=== PATIENT | female | born 1930 | race Caucasian/White ===

== ENCOUNTER 2017-02-19 21:59 | Inpatient (IN) ==
[2017-02-19] MEDS ORDERED: methylPREDNISolone 125 MG/2 ML VIAL IVP ONE (22:21)
[2017-02-19] MEDS ORDERED: Albuterol 2.5 MG/3 ML NEBULIZER IH ONE (22:21)
[2017-02-19] MEDS ORDERED: Ipratropium/Albuterol Neb 3 ML IH ONE (22:21)
--- NOTE | 2017-02-19 22:24 | Emergency Department Note ---
Disposition Clinical Impression: COPD exacerbation Pneumonia Qualifiers: Pneumonia type: due to unspecified organism Laterality: left Lung location: lower lobe of lung Qualified Code(s): J18.1 - Lobar pneumonia, unspecified organism Disposition: Admitted As Inpatient Condition: Good Referrals: NONE,PCP [Non-Partnered Physician] - Forms: ED Satisfaction Letter Time of Disposition: 01:32 SOB HPI - General Chief Complaint: ED Shortness of Breath/Dyspnea Stated Complaint: has CHF, cant breathe Time Seen by Provider: 02/19/17 22:20 Source: patient, family Mode of arrival: wheelchair Limitations: no limitations Nursing Notes Reviewed: Yes Vital Signs Reviewed: Yes - History of Present Illness 86-year-old white female with onset of difficulty breathing this evening just prior to coming in. She has developed a cough over the last day or 2. It is productive white sputum. No fever reported. No chest pain. She has a history of COPD and CHF. Troponin and cytopenia. She was exposed to a family member who has bronchitis. She is not on home oxygen. No leg swelling. Pt Subjective Complaint: shortness of breath, cough Onset (ago): day(s) Context: recent illness (1) Severity: moderate Consistency/Duration: constant Improves with: oxygen, rest Worsens with: lying flat, exertion Known history of: COPD, congestive heart failure Associated symptoms: Reports: sputum production Treatment prior to arrival: bronchodilator Cough present: Yes Cough Description: Involuntary Cough Frequency: Intermittent Sputum production: Yes Sputum Amount: Moderate Sputum Color: White - Related Data Home oxygen amount: none Home Medications Medication Instructions Recorded Confirmed Carvedilol [Coreg] 3.125 mg PO BIDWM 04/13/15 12/18/16 Furosemide [Lasix] 40 mg PO BID 04/13/15 12/18/16 Lisinopril [Zestril] 2.5 mg PO DAILY 04/13/15 12/18/16 Multivitamin/Iron/Folic Acid 1 each PO DAILY 04/13/15 12/18/16 [Centrum Complete Multivit Tab] Tiotropium [Spiriva] 18 mcg IH DAILY 04/13/15 12/18/16 Azelastine 0.1% Nasal [place] 1 spr IH BID 10/15/15 12/18/16 [Astelin] Clopidogrel [Plavix] 75 mg PO DAILY 10/15/15 12/18/16 Montelukast [Singulair] 10 mg PO QPM 10/15/15 12/18/16 Budesonide/Formoterol 80/4.5 2 puff IH BID 02/12/16 12/18/16 [Symbicort 80/4.5] Cyanocobalamin (Vitamin B-12) 2,500 mcg PO DAILY 02/12/16 12/18/16 [Vitamin B12] Spironolactone [Aldactone] 12.5 mg PO DAILY 02/12/16 12/18/16 Albuterol Sulfate [Ventolin Hfa] 2 puff IH Q4H PRN 08/27/16 12/18/16 Mirtazapine [Remeron] 15 mg PO HS 08/27/16 12/18/16 [place]-3/Dha/Epa/Fish Oil [Fish Oil 1 each PO DAILY 08/27/16 12/18/16 1,000 mg Softgel] Biotin 1 mg PO DAILY 09/06/16 12/18/16 Loratadine [Allergy Relief] 10 mg PO DAILY 09/06/16 12/18/16 Acetaminophen [Tylenol] 500 mg PO Q6HR PRN 09/14/16 12/18/16 Aspirin 81 mg PO DAILY 09/14/16 12/18/16 GuaiFENesin ER [Mucinex] 600 mg PO BID PRN 12/18/16 12/18/16 Levothyroxine [Synthroid] 125 mcg PO 0630 12/18/16 12/18/16 Pantoprazole Sodium [Protonix] 40 mg PO DAILY 12/18/16 12/18/16 Simethicone [Gas-X] 80 mg PO QID 12/18/16 12/18/16 Simvastatin [Zocor] 20 mg PO HS 12/18/16 12/18/16 Previous Rx's Medication Instructions Recorded Lactulose 10 gm PO TID udc 02/14/16 Albuterol Neb [Proventil Neb] 2.5 mg IH Q2H PRN #0 inhsol 09/21/16 Docusate [Colace] 100 mg PO BID PRN #0 capsule 10/25/16 Polyethylene Glycol 3350 [MiraLAX 1 scoop PO DAILY #510 gm 10/25/16 Powder Bulk 17.9 Oz] Simethicone [Gas-X] 80 mg PO TID #90 tab.chew 12/19/16 Nitrofurantoin (BID) [Macrobid] 100 mg PO BID #14 capsule 01/16/17 Allergies Allergy/AdvReac Type Severity Reaction Status Date / Time Penicillins Allergy Mild UNKNOWN Verified 01/18/17 14:36 cephalexin Allergy Anaphylaxis Verified 01/18/17 14:36 Sulfa (Sulfonamide Allergy Hives Verified 01/18/17 14:36 Antibiotics) All systems ED: reviewed and negative except as stated. Constitutional: Denies: fever, chills ENT ED: Denies: ear pain, throat pain Cardiovascular: Denies: chest pain Respiratory: Reports: cough, dyspnea, wheezes Gastrointestinal: Denies: abdominal pain, nausea, vomiting Neurological: Reports: weakness Past Medical History - Past Medical History Medical history: Reports: arthritis, atrial fibrillation, cardiomyopathy, cirrhosis, CHF, COPD, coronary artery disease, dementia, diabetes, GERD, hyperlipidemia, hypertension, liver disease, myocardial infarction, peripheral artery disease, renal disease, thyroid disease, other Surgical history: Reports: angioplasty/stent, cholecystectomy, coronary bypass ( CABG), herniorrhaphy (x2), pacemaker/AICD, other, vascular surgery (Lower extremity vein stripping of both extremities.), AICD, pacemaker Psychiatric history: Reports: anxiety, depression, other TEMPLATE FITTER history: Reports: no TEMPLATE FITTER history - Social History Smoking Status: Never smoker Smokeless Tobacco Status: No Alcohol use: Reports: none Drug use: Reports: none Physical Exam - General Limitations: no limitations General appearance: alert, in distress (Mildly dyspneic) - Head Head exam: atraumatic, normocephalic - Eye Eye exam: Present: PERRL, EOMI, other ([place] conjunctiva). Absent: scleral icterus - ENT ENT exam: normal oropharynx, mucous membranes moist - Neck Neck exam: Present: normal inspection, full ROM, trachea midline. Absent: lymphadenopathy - Respiratory Respiratory exam: Present: respiratory distress (Mildly dyspneic), wheezes ( Bilateral, moderate, expiratory), prolonged expiratory phase, other (Decreased breath sounds left base with rales in the left base) - Cardiovascular Cardiovascular exam: Present: regular rate, normal rhythm, normal heart sounds - Abdominal Exam Abdominal exam: Present: soft, Non-Tender. Absent: organomegaly, mass - Extremities Exam Extremities exam: Present: normal capillary refill. Absent: tenderness, pedal edema, calf tenderness - Neurological Exam Neurological exam: Present: alert, oriented X3. Absent: motor sensory deficit - Psychiatric Psychiatric exam: Present: normal affect, normal mood - Skin Skin exam: Present: warm, dry, intact. Absent: cyanosis, diaphoresis Course - Reevaluation(s) Reevaluation #1: Discussed with Dr. Echevarria. He accepts the patient for admission. The patient is resting comfortably at this time. Her heart rate is 104. She is breathing easily. She is actually eating and drinking in the room at this time. She is improved. Time: 01:31 Vital Signs Temperature 100.8 F H 02/19/17 22:00 Pulse Rate 82 02/19/17 22:00 Respiratory Rate 36 02/19/17 22:00 Blood Pressure 112/59 02/19/17 22:00 O2 Sat by Pulse Oximetry 90 02/19/17 22:00 Temperature 100.8 F H 02/19/17 22:00 Pulse Rate 65 02/20/17 01:21 Respiratory Rate 24 02/20/17 01:21 Blood Pressure 121/45 02/20/17 01:21 O2 Sat by Pulse Oximetry 100 02/20/17 01:21 Oxygen Delivery Oxygen Delivery Nasal Cannula Shortness of Breath/Dyspnea - [facility] Narrative Medical decision making narrative: Radiographically I suspect she has pneumonia, she does have a low-grade temperature. She likely has an exacerbation of her COPD as well. There is no overt failure on her chest x-ray, although her BNP is elevated. Blood cultures were obtained. She was given nebulizers and Solu-Medrol. She was given a dose of Lasix. She will be admitted to a telemetry bed. I discussed her CODE STATUS with her family. I do not want CPR. - Differential Diagnosis Likely: acute exacerbation of chronic obstructive airways disease, congestive heart failure, pneumonia, pulmonary embolism, arrhythmia - Lab Data Lab results reviewed: Yes I reviewed the patient's lab results. Result diagrams: 02/19/17 22:32 02/19/17 22:32 Lab Results 02/19/17 02/19/17 02/19/17 Range/Units 00:35 22:32 22:32 WBC 6.7 (4.3-11.1) K/mcL RBC 2.67 L (3.82-4.97) M/mcL Hgb 9.0 L (11.5-15.4) g/dL Hct 26.7 L (35.3-44.9) % MCV 100.0 (83.0-100.0) fL MCH 33.7 H (28.0-33.3) pg MCHC 33.7 (31.6-35.5) g/dL RDW 12.5 (11.5-14.5) % Plt Count 78 L (140-400) K/mcL MPV 12.7 H (9.4-12.4) fL Immature Gran % 0.3 (0-4) % Seg Neutrophils % 81.3 % Lymphocytes % 10.2 % Monocytes % 7.3 % Eosinophils % 0.6 % Basophils % 0.3 % Neutrophils # 5.4 (1.6-8.9) K/mcL Lymphocytes # 0.7 (0.6-4.6) K/mcL Monocytes # 0.5 (0.0-1.3) K/mcL Eosinophils # 0.0 (0.0-0.6) K/mcL Basophils # 0.0 (0.0-0.2) K/mcL PT 13.8 H (9.4-12.1) Seconds INR 1.3 VBG Lactic Acid (0.5-2.2) mmol/L Sodium (136-145) mEq/L Potassium (3.5-4.5) mEq/L Chloride (98-109) mEq/L Carbon Dioxide (19-29) mEq/L BUN (7-20) mg/dL Creatinine (0.57-1.11) mg/dL Est GFR ( Amer) (> 60) Est GFR (Non-Af Amer) (> 60) BUN/Creatinine Ratio (6-26) Glucose (70-99) mg/dL Calculated Osmolality (280-300) Calcium (8.6-10.8) mg/dL Total Bilirubin (0.2-1.2) mg/dL AST (5-34) Units/L ALT (0-55) Units/L Alkaline Phosphatase (38-126) Units/L Troponin I 0.02 (0-0.03) ng/mL B-Natriuretic Peptide (0-100) pg/mL Serum Total Protein (6.0-8.3) g/dL Albumin (3.5-5.0) g/dL Globulin (2.4-3.5) g/dL Albumin/Globulin Ratio (1.1-2.2) 02/19/17 02/19/17 02/19/17 Range/Units 22:32 22:32 22:32 WBC (4.3-11.1) K/mcL RBC (3.82-4.97) M/mcL Hgb (11.5-15.4) g/dL Hct (35.3-44.9) % MCV (83.0-100.0) fL MCH (28.0-33.3) pg MCHC (31.6-35.5) g/dL RDW (11.5-14.5) % Plt Count (140-400) K/mcL MPV (9.4-12.4) fL Immature Gran % (0-4) % Seg Neutrophils % % Lymphocytes % % Monocytes % % Eosinophils % % Basophils % % Neutrophils # (1.6-8.9) K/mcL Lymphocytes # (0.6-4.6) K/mcL Monocytes # (0.0-1.3) K/mcL Eosinophils # (0.0-0.6) K/mcL Basophils # (0.0-0.2) K/mcL PT (9.4-12.1) Seconds INR VBG Lactic Acid (0.5-2.2) mmol/L Sodium 135 L (136-145) mEq/L Potassium 5.2 H (3.5-4.5) mEq/L Chloride 101 (98-109) mEq/L Carbon Dioxide 22 (19-29) mEq/L BUN 30 H (7-20) mg/dL Creatinine 1.43 H (0.57-1.11) mg/dL Est GFR ( Amer) 42 L (> 60) Est GFR (Non-Af Amer) 35 L (> 60) BUN/Creatinine Ratio 21 (6-26) Glucose 374 H (70-99) mg/dL Calculated Osmolality 301 H (280-300) Calcium 9.5 (8.6-10.8) mg/dL Total Bilirubin 0.7 (0.2-1.2) mg/dL AST 41 H (5-34) Units/L ALT 32 (0-55) Units/L Alkaline Phosphatase 90 (38-126) Units/L Troponin I 0.02 (0-0.03) ng/mL B-Natriuretic Peptide 1630 H (0-100) pg/mL Serum Total Protein 6.9 (6.0-8.3) g/dL Albumin 3.4 L (3.5-5.0) g/dL Globulin 3.5 (2.4-3.5) g/dL Albumin/Globulin Ratio 1.0 L (1.1-2.2) 02/19/17 Range/Units 22:32 WBC (4.3-11.1) K/mcL RBC (3.82-4.97) M/mcL Hgb (11.5-15.4) g/dL Hct (35.3-44.9) % MCV (83.0-100.0) fL MCH (28.0-33.3) pg MCHC (31.6-35.5) g/dL RDW (11.5-14.5) % Plt Count (140-400) K/mcL MPV (9.4-12.4) fL Immature Gran % (0-4) % Seg Neutrophils % % Lymphocytes % % Monocytes % % Eosinophils % % Basophils % % Neutrophils # (1.6-8.9) K/mcL Lymphocytes # (0.6-4.6) K/mcL Monocytes # (0.0-1.3) K/mcL Eosinophils # (0.0-0.6) K/mcL Basophils # (0.0-0.2) K/mcL PT (9.4-12.1) Seconds INR VBG Lactic Acid 2.1 (0.5-2.2) mmol/L Sodium (136-145) mEq/L Potassium (3.5-4.5) mEq/L Chloride (98-109) mEq/L Carbon Dioxide (19-29) mEq/L BUN (7-20) mg/dL Creatinine (0.57-1.11) mg/dL Est GFR ( Amer) (> 60) Est GFR (Non-Af Amer) (> 60) BUN/Creatinine Ratio (6-26) Glucose (70-99) mg/dL Calculated Osmolality (280-300) Calcium (8.6-10.8) mg/dL Total Bilirubin (0.2-1.2) mg/dL AST (5-34) Units/L ALT (0-55) Units/L Alkaline Phosphatase (38-126) Units/L Troponin I (0-0.03) ng/mL B-Natriuretic Peptide (0-100) pg/mL Serum Total Protein (6.0-8.3) g/dL Albumin (3.5-5.0) g/dL Globulin (2.4-3.5) g/dL Albumin/Globulin Ratio (1.1-2.2) - Radiology Data Radiology results reviewed: Yes I reviewed the patient's radiology results. Impressions Chest X-Ray 02/19/17 22:21 IMPRESSION: Progressive left basilar pleuroparenchymal disease. D/ / Smith Walker MD / Smith Walker MD Interpreting Provider: Smith Walker MD - EKG Data EKG attestation: Yes I reviewed and interpreted this EKG. EKG results narrative: Paced rhythm, rate of 63. Rhythm strip shows a paced rhythm with a rate of 63, QRS 190 ms with no other ectopy as interpreted by me. This is compared to a tracing dated 09/13/13, no significant change.
[2017-02-19 22:40] LABS: Basophils % 0.3 %; Eosinophils % 0.6 %; Hematocrit 26.7 % (35.3-44.9); Immature Granulocytes % 0.3 % (0-4); Lymphocytes # 0.7 K/mcL (0.6-4.6); Lymphocytes % 10.2 %; Mean Corpuscular HGB Conc 33.7 g/dL (31.6-35.5); Mean Corpuscular Hemoglobin 33.7 pg (28.0-33.3); Mean Platelet Volume 12.7 fL (9.4-12.4); Monocytes # 0.5 K/mcL (0.0-1.3); Monocytes % 7.3 %; Neutrophils # 5.4 K/mcL (1.6-8.9); Red Blood Count 2.67 M/mcL (3.82-4.97); Red Cell Distribution Width 12.5 % (11.5-14.5); Segmented Neutrophils % 81.3 %
[2017-02-19 22:43] LABS: Platelet Count 78 K/mcL (140-400)
[2017-02-19 22:45] LABS: INR 1.3; Prothrombin Time 13.8 Seconds (9.4-12.1)
[2017-02-19 22:58] LABS: Albumin 3.4 g/dL (3.5-5.0); Bilirubin,Total 0.7 mg/dL (0.2-1.2); Calcium 9.5 mg/dL (8.6-10.8); Globulin 3.5 g/dL (2.4-3.5); Potassium 5.2 mEq/L (3.5-4.5); Total Protein 6.9 g/dL (6.0-8.3)
[2017-02-19] MEDS ORDERED: Levofloxacin 500 MG/100 ML 500 MG/100 ML BAG IVPB ONE (23:56)
[2017-02-20] MEDS ORDERED: Furosemide 40 MG/4 ML VIAL IVP ONE (02:06)
[2017-02-20] MEDS ORDERED: Ondansetron ODT 4 MG TAB.RAPDIS SL PRN (02:06)
[2017-02-20] MEDS ORDERED: Levofloxacin 500 MG/100 ML 500 MG/100 ML BAG IVPB SCH (02:06)
[2017-02-20] MEDS ORDERED: Acetaminophen 325 MG TABLET PO PRN (02:06)
[2017-02-20] MEDS ORDERED: Naloxone 0.4 MG/ML INJ IVP PRN (02:06)
[2017-02-20] MEDS: MethylPREDNISolone 40 MG/ML VIAL IVP SCH ×2 (03:17→10:58)
[2017-02-20] MEDS: Ipratropium/Albuterol Neb 3 ML IH SCH ×3 (03:33→10:14)
[2017-02-20] MEDS ORDERED: *HR* Enoxaparin 30 MG/0.3 ML SYRINGE SQ SCH (06:00)
[2017-02-20] MEDS: *HR* Enoxaparin 30 MG/0.3 ML SYRINGE SQ SCH (06:20)
[2017-02-20] MEDS ORDERED: Aspirin 81 MG TAB.CHEW PO SCH ×2 (09:00→12:17)
--- NOTE | 2017-02-20 11:36 | Internal Med History&Physical ---
Date of Encounter: 02/20/17 Time of Encounter: 11:00 Assessment and Plan (1) Pneumonia Current visit: Yes Status: Acute Chest x-ray in ER showed probable left lower lobe infiltrate. She has been started on IV Levaquin. Will add lactobacillus. Qualifiers: Pneumonia type: due to unspecified organism Laterality: left Lung location: lower lobe of lung Qualified Code(s): J18.1 - Lobar pneumonia, unspecified organism (2) Chronic systolic CHF (congestive heart failure) Current visit: No Status: Acute Suspect dyspnea is primarily due to pneumonia with exacerbation of heart failure. LVEF was 20-25% on September 2016 Limited echo. Will continue Coreg and add Lanoxin and isosorbide. (3) Hypothyroidism Current visit: No Status: Chronic TSH was normal at 2.151 on 01/11/2017. Continue present dose Synthroid Qualifiers: Hypothyroidism type: unspecified Qualified Code(s): E03.9 - Hypothyroidism , unspecified (4) CKD (chronic kidney disease) stage 3, GFR 30-59 ml/min Current visit: No Status: Chronic Creatinine has risen from 0.80 on 10/25/2016 to present level 1.43. We will hold diuretics and lisinopril and monitor renal indices. (5) Dementia Current visit: No Status: Chronic B12 level was greater than 2000 on 10/21/2016. We will discontinue supplemental B12. TSH was normal. Head CT 08/27/2016 showed age-appropriate chronic microvascular ischemic changes. Qualifiers: Dementia type: unspecified type Dementia behavioral disturbance: with behavioral disturbance Qualified Code(s): F03.91 - Unspecified dementia with behavioral disturbance (6) Diabetes mellitus, type 2 Current visit: No Status: Chronic Hemoglobin A1c was 5.1% on 11/12/2016. No diabetic medications were listed on her home med list. Qualifiers: Diabetes mellitus complication status: with unspecified complications Diabetes mellitus mcfp insulin use: unspecified watermaster insulin use status Qualified Code(s): E11.8 - Type 2 diabetes mellitus with unspecified complications (7) Pancytopenia Current visit: No Status: Chronic She has seen [facility] hematology/oncology. Monitor labs. Internal Medicine - H&P: HPI Chief complaint: Dyspnea Admitted From: Home Plans for Post Hospital Care: Home History of present illness: Ms. Leigh is a 86 year old female who came to emergency room with complaints of increased dyspnea. She denied chest pain emergency room. She is evaluated and felt to have exacerbation of COPD. She was admitted to [facility] for ongoing care needs. She is a poor historian. She does not know her location or her age. Review of available records show several hospitalizations at [facility] over the previous 2 years. Her most recent hospitalization was December 2016 for exacerbation of heart failure with edema. From review of available records it appears she has diagnoses of chronic atrial fibrillation, pacemaker placement, CHF with LVEF of 20-25% on limited echocardiogram done September 2016. A previous echocardiogram showed severe mitral regurgitation. There was reported biatrial enlargement without actual measurements given. She has known ASHD status post [place] approximately 2010. She reportedly has had CABG and stents placed without details available. Past Med Surg Social Fam HX - Past Medical History Medical history: arthritis, atrial fibrillation, cardiomyopathy, cirrhosis, CHF , COPD, coronary artery disease, dementia, diabetes, GERD, hyperlipidemia, hypertension, liver disease, myocardial infarction, peripheral artery disease, renal disease, thyroid disease, other Psychiatric history: anxiety, depression, other - Past Surgical History Surgical History: angioplasty/stent, cholecystectomy, coronary bypass (CABG), herniorrhaphy, pacemaker/AICD, other, vascular surgery, AICD, pacemaker - Social History Smoking Status: Never smoker Smokeless Tobacco Status: No Alcohol use: none Drug use: none - Family History Mother Living Status: Hx Family Cardiac Disorders: Yes Hx Family Endocrine Disorder: Yes (DM) Father Living Status: Hx Family Cardiac Disorders: Yes Daughter Living Status: Hx Family Cancer: Yes (Unknown cancer) Internal Medicine - H&P: Meds Carvedilol [Coreg] 3.125 mg PO BIDWM 04/13/15 [History] Furosemide [Lasix] 40 mg PO BID 04/13/15 [History] Lisinopril [Zestril] 2.5 mg PO DAILY 04/13/15 [History] Multivitamin/Iron/Folic Acid [Centrum Complete Multivit Tab] 1 each PO DAILY [History] Tiotropium [Spiriva] 18 mcg IH DAILY 04/13/15 [History] Azelastine 0.1% Nasal [place] [Astelin] 1 spr IH BID 10/15/15 [History] Clopidogrel [Plavix] 75 mg PO DAILY 10/15/15 [History] Montelukast [Singulair] 10 mg PO QPM 10/15/15 [History] Budesonide/Formoterol 80/4.5 [Symbicort 80/4.5] 2 puff IH BID 02/12/16 [History ] Cyanocobalamin (Vitamin B-12) [Vitamin B12] 2,500 mcg PO DAILY 02/12/16 [History ] Spironolactone [Aldactone] 12.5 mg PO DAILY 02/12/16 [History] Lactulose 10 gm PO TID udc 02/14/16 [Rx] Albuterol Sulfate [Ventolin Hfa] 2 puff IH Q4H PRN 08/27/16 [History] Mirtazapine [Remeron] 15 mg PO HS 08/27/16 [History] [place]-3/Dha/Epa/Fish Oil [Fish Oil 1,000 mg Softgel] 1 each PO DAILY 08/27/16 [ History] Biotin 1 mg PO DAILY 09/06/16 [History] Loratadine [Allergy Relief] 10 mg PO DAILY 09/06/16 [History] Acetaminophen [Tylenol] 500 mg PO Q6HR PRN 09/14/16 [History] Aspirin 81 mg PO DAILY 09/14/16 [History] Albuterol Neb [Proventil Neb] 2.5 mg IH Q2H PRN #0 inhsol 09/21/16 [Rx] Docusate [Colace] 100 mg PO BID PRN #0 capsule 10/25/16 [Rx] Polyethylene Glycol 3350 [MiraLAX Powder Bulk 17.9 Oz] 1 scoop PO DAILY #510 gm 10/25/16 [Rx] GuaiFENesin ER [Mucinex] 600 mg PO BID PRN 12/18/16 [History] Levothyroxine [Synthroid] 125 mcg PO 0630 12/18/16 [History] Pantoprazole Sodium [Protonix] 40 mg PO DAILY 12/18/16 [History] Simethicone [Gas-X] 80 mg PO QID 12/18/16 [History] Simvastatin [Zocor] 20 mg PO HS 12/18/16 [History] Simethicone [Gas-X] 80 mg PO TID #90 tab.chew 12/19/16 [Rx] Nitrofurantoin (BID) [Macrobid] 100 mg PO BID #14 capsule 01/16/17 [Rx] Allergies Penicillins Allergy (Mild, Verified 01/18/17 14:36) UNKNOWN cephalexin Allergy (Verified 01/18/17 14:36) Anaphylaxis Sulfa (Sulfonamide Antibiotics) Allergy (Verified 01/18/17 14:36) Hives Patients son stated-he is uncertain about the reaction but thinks it is hives. All Systems PM: A 10-system review of systems was performed and is negative for pertinent findings except as documented above in the HPI. Review of systems: Gen.: Her weight has been stable at approximately 54 kg since the September 2016 hospitalization at [facility]. Cardiovascular: As per history of present illness Respiratory: She is essentially a lifelong nonsmoker. The chart reports a diagnosis of COPD. GI: She has diagnoses of cirrhosis of uncertain etiology. There is no mention of other disorders of her liver, exocrine pancreas or gallbladder : She has chronic kidney disease stage III. There is no other kidney or bladder disorders mentioned Neurologic: She has dementia. There is no mention of large distribution strokes or seizures Endocrine: She has diagnoses of DM 2, hypothyroidism, and hyperlipidemia. Hematology/oncology: She has pancytopenia and has been seen by hematology/ oncology at [facility]. There is no known internal malignancies Psychiatric: There is no known anxiety depression or other mental health issues Musk skeletal: There is no known gout or other listed bone joint or muscle disorders. - Constitutional Vitals: Temp Pulse Resp BP Pulse Ox 97.8 F 60 18 112/52 100 02/20/17 06:35 02/20/17 06:35 02/20/17 06:35 02/20/17 06:35 02/20/17 06:35 Exam: Gen.: She is well-developed well-nourished female lying in bed who appears in no acute distress HEENT: Head is atraumatic and normocephalic. Eyes: EOMI. There is no scleral icterus. Mouth: Mucosa is dry Neck: Supple and nontender. There is no thyromegaly or adenopathy noted. There is a well-healed scar at the base of the lower neck anteriorly Chest: Pacemaker is in place in the left upper chest. Heart: Regular(pacer) without murmurs gallops or ectopics Lungs: No wheezes or crackles are heard Abdomen: She has a protuberant abdomen. She has ventral herniation of the abdominal wall. No masses or guarding are noted. This does not appear to be significant ascites to percussion. Extremities: She has chronic venous stasis pigmentation changes bilaterally. Dorsalis pedis and posterior tibial pulses are virtually nonpalpable. There is 0-trace edema present bilaterally. Neurologic: Mental status she is awake and able to answer a few questions. She does not know her age or location her length of stay. Cranial nerves: Smile is symmetric. Forehead wrinkles bilaterally. Tongue protrudes midline. EOMI. Motor: There is no pronator drift. Cerebellar: Finger to nose is intact bilaterally. Skin: She has multiple ecchymoses of various stages on her arms. Her skin is warm and dry. Internal Med - H&P Results - Labs CBC & Chem 7: 02/19/17 22:32 02/19/17 22:32
[2017-02-20] MEDS ORDERED: Albuterol 2.5 MG/3 ML NEBULIZER IH PRN (12:11)
[2017-02-20] MEDS: *HR* Digoxin 0.125 MG TABLET PO SCH (12:35)
[2017-02-20] MEDS: Isosorbide MONOnitrate (24 HR) 30 MG TAB.ER.24H PO SCH (13:05)
--- NOTE | 2017-02-20 20:27 | Electrocardiograph Report ---
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
[2017-02-20] MEDS: Lactobacillus 1 EACH CAP.SPRINK PO SCH (21:15)
[2017-02-20] MEDS: ALPRAZolam 0.5 MG TABLET PO PRN (23:34)
[2017-02-21 05:35] LABS: Basophils % 0.2 %; Hematocrit 24.5 % (35.3-44.9); Hemoglobin 8.5 g/dL (11.5-15.4); Immature Granulocytes % 0.2 % (0-4); Lymphocytes # 1.2 K/mcL (0.6-4.6); Lymphocytes % 20.8 %; Mean Corpuscular HGB Conc 34.7 g/dL (31.6-35.5); Mean Corpuscular Hemoglobin 33.7 pg (28.0-33.3); Mean Corpuscular Volume 97.2 fL (83.0-100.0); Mean Platelet Volume 13.4 fL (9.4-12.4); Monocytes # 0.5 K/mcL (0.0-1.3); Neutrophils # 3.9 K/mcL (1.6-8.9); Red Blood Count 2.52 M/mcL (3.82-4.97); Red Cell Distribution Width 12.1 % (11.5-14.5); Segmented Neutrophils % 69.8 %
[2017-02-21 05:44] LABS: Platelet Count 72 K/mcL (140-400)
[2017-02-21 05:51] LABS: Calcium 9.9 mg/dL (8.6-10.8); Potassium 3.8 mEq/L (3.5-4.5)
[2017-02-21] MEDS: *HR* Enoxaparin 30 MG/0.3 ML SYRINGE SQ SCH ×2 (06:22→06:25)
[2017-02-21 07:03] LABS: Platelet Estimate Decreased (Normal)
[2017-02-21] MEDS: Lactobacillus 1 EACH CAP.SPRINK PO SCH ×2 (08:07→21:31)
[2017-02-21] MEDS: *HR* Digoxin 0.125 MG TABLET PO SCH (08:07)
[2017-02-21] MEDS: Isosorbide MONOnitrate (24 HR) 30 MG TAB.ER.24H PO SCH (08:08)
--- NOTE | 2017-02-21 09:49 | Internal Med Progress Note ---
Date of Encounter: 02/21/17 Time of Encounter: 09:40 - Assessment and plan (1) Pneumonia Current Visit: Yes Status: Acute Assessment and plan: February 21. Continue IV Levaquin and lactobacillus. Qualifiers: Pneumonia type: due to unspecified organism Laterality: left Lung location: lower lobe of lung Qualified Code(s): J18.1 - Lobar pneumonia, unspecified organism (2) Chronic systolic CHF (congestive heart failure) Current Visit: No Status: Acute Assessment and plan: February 21. LVEF was 20-25% on October 08 limited echo. Bn peptide has risen. Continue Coreg, Lanoxin, and isosorbide. Will add low-dose Bumex. (3) Hypothyroidism Current Visit: No Status: Chronic Assessment and plan: February 21. TSH was normal at 2.151 on 01/11/2017. Continue Synthroid Qualifiers: Hypothyroidism type: unspecified Qualified Code(s): E03.9 - Hypothyroidism , unspecified (4) CKD (chronic kidney disease) stage 3, GFR 30-59 ml/min Current Visit: No Status: Chronic Assessment and plan: February 21. Creatinine improved to 1.20. We will give low-dose Bumex but continue to hold lisinopril and monitor renal indices. (5) Dementia Current Visit: No Status: Chronic Assessment and plan: February 21. B12 and TSH were normal. Continue to monitor. Qualifiers: Dementia type: unspecified type Dementia behavioral disturbance: with behavioral disturbance Qualified Code(s): F03.91 - Unspecified dementia with behavioral disturbance (6) Diabetes mellitus, type 2 Current Visit: No Status: Chronic Assessment and plan: February 21. Hemoglobin A1c was 5.1% on 11/12/2016. No diabetic medications were listed on her home med list. Qualifiers: Diabetes mellitus complication status: with unspecified complications Diabetes mellitus terminal gauger insulin use: unspecified fpc insulin use status Qualified Code(s): E11.8 - Type 2 diabetes mellitus with unspecified complications (7) Pancytopenia Current Visit: No Status: Chronic Assessment and plan: February 21. Stable. Continue to monitor labs. - Subjective Interval history: February 21. She has no new complaints. She thinks she is less dyspneic today. - Constitutional Vitals: Temp Pulse Resp BP Pulse Ox 97.9 F 61 14 109/67 100 02/21/17 06:50 02/21/17 06:50 02/21/17 06:50 02/21/17 06:50 02/21/17 06:50 Exam: She is sitting comfortably in bed and appears in no acute distress. There is no obvious dyspnea present. Her affect is bright and cheerful. Her conversation is simple but appropriate. I reviewed her medications and lab results. Internal Medicine: Result - Labs CBC & Chem 7: 02/21/17 04:53 02/21/17 04:53 Labs: Short CBC 02/21/17 Range/Units 04:53 WBC 5.6 (4.3-11.1) K/mcL Hgb 8.5 L (11.5-15.4) g/dL Hct 24.5 L (35.3-44.9) % Plt Count 72 L (140-400) K/mcL Neutrophils # 3.9 (1.6-8.9) K/mcL BMP 02/21/17 04:53 Sodium 137 Potassium 3.8 D Chloride 101 Carbon Dioxide 25 BUN 36 H Creatinine 1.20 H Glucose 183 H Calcium 9.9 - ABG Interpretation ABG results: PT/INR, D-dimer PT 13.8 Seconds (9.4-12.1) H 02/19/17 22:32 Consult Discharge Plan - Plan Referrals: Urban Taylor MD [Primary Care Provider] - 1 week
[2017-02-21] MEDS: Bumetanide 1 MG TABLET PO SCH (12:14)
[2017-02-21] MEDS: ALPRAZolam 0.5 MG TABLET PO PRN (21:31)
[2017-02-22] MEDS ORDERED: Levofloxacin 500 MG/100 ML 500 MG/100 ML BAG IVPB SCH (00:01)
[2017-02-22] MEDS: *HR* Enoxaparin 30 MG/0.3 ML SYRINGE SQ SCH (06:31)
[2017-02-22 06:51] LABS: Basophils % 0.5 %; Eosinophils # 0.1 K/mcL (0.0-0.6); Eosinophils % 1.6 %; Hemoglobin 8.9 g/dL (11.5-15.4); Immature Granulocytes % 0.2 % (0-4); Lymphocytes # 1.4 K/mcL (0.6-4.6); Mean Corpuscular HGB Conc 34.2 g/dL (31.6-35.5); Mean Corpuscular Hemoglobin 33.8 pg (28.0-33.3); Mean Corpuscular Volume 98.9 fL (83.0-100.0); Mean Platelet Volume 12.5 fL (9.4-12.4); Monocytes # 0.4 K/mcL (0.0-1.3); Monocytes % 8.2 %; Neutrophils # 2.5 K/mcL (1.6-8.9); Red Blood Count 2.63 M/mcL (3.82-4.97); Red Cell Distribution Width 12.3 % (11.5-14.5); Segmented Neutrophils % 57.5 %
[2017-02-22 06:57] LABS: Platelet Count 86 K/mcL (140-400)
[2017-02-22 07:10] LABS: Calcium 9.5 mg/dL (8.6-10.8); Potassium 4.3 mEq/L (3.5-4.5)
[2017-02-22 07:26] VITALS: BP 119/59
[2017-02-22] MEDS: Lactobacillus 1 EACH CAP.SPRINK PO SCH (08:09)
[2017-02-22] MEDS: *HR* Digoxin 0.125 MG TABLET PO SCH (08:09)
[2017-02-22] MEDS: Isosorbide MONOnitrate (24 HR) 30 MG TAB.ER.24H PO SCH (08:10)
[2017-02-22] MEDS: Bumetanide 1 MG TABLET PO SCH (08:10)
--- NOTE | 2017-02-22 10:23 | Discharge Summary ---
Date of Encounter: 02/22/17 Time of Encounter: 10:00 - Discharge Diagnosis (1) Pneumonia Priority: Primary Status: Acute Qualifiers: Pneumonia type: due to unspecified organism Laterality: left Lung location: lower lobe of lung Qualified Code(s): J18.1 - Lobar pneumonia, unspecified organism (2) Chronic systolic CHF (congestive heart failure) Priority: Secondary Status: Acute (3) Hypothyroidism Priority: Secondary Status: Chronic Qualifiers: Hypothyroidism type: unspecified Qualified Code(s): E03.9 - Hypothyroidism , unspecified (4) CKD (chronic kidney disease) stage 3, GFR 30-59 ml/min Priority: Secondary Status: Chronic (5) Dementia Priority: Secondary Status: Chronic Qualifiers: Dementia type: unspecified type Dementia behavioral disturbance: with behavioral disturbance Qualified Code(s): F03.91 - Unspecified dementia with behavioral disturbance (6) Diabetes mellitus, type 2 Priority: Secondary Status: Chronic Qualifiers: Diabetes mellitus complication status: with unspecified complications Diabetes mellitus termite control technician insulin use: unspecified termite control technician insulin use status Qualified Code(s): E11.8 - Type 2 diabetes mellitus with unspecified complications (7) Pancytopenia Priority: Secondary Status: Chronic - Discharge Medications Prescriptions: Bumetanide [Bumex] 0.5 mg PO DAILY #15 tablet Digoxin [Lanoxin] 0.125 mg PO QOD #15 tablet Isosorbide MONOnitrate (24 HR) [Imdur] 30 mg PO DAILY #30 Lactobacillus [Culturelle] 1 each PO BID #6 cap.sprink levoFLOXacin [Levaquin] 500 mg PO DAILY #3 tablet Levofloxacin [Levaquin] 500 mg PO DAILY #3 tablet Potassium Chloride 10 meq PO DAILY #30 tab.er.prt Home Medications: Carvedilol [Coreg] 3.125 mg PO BIDWM 04/13/15 [History] Multivitamin/Iron/Folic Acid [Centrum Complete Multivit Tab] 1 each PO DAILY [History] Tiotropium [Spiriva] 18 mcg IH DAILY 04/13/15 [History] Clopidogrel [Plavix] 75 mg PO DAILY 10/15/15 [History] Montelukast [Singulair] 10 mg PO QPM 10/15/15 [History] Budesonide/Formoterol 80/4.5 [Symbicort 80/4.5] 2 puff IH BID 02/12/16 [History ] Lactulose 10 gm PO TID udc 02/14/16 [Rx] Albuterol Sulfate [Ventolin Hfa] 2 puff IH Q4H PRN 08/27/16 [History] Mirtazapine [Remeron] 15 mg PO HS 08/27/16 [History] [place]-3/Dha/Epa/Fish Oil [Fish Oil 1,000 mg Softgel] 1 each PO DAILY 08/27/16 [ History] Biotin 1 mg PO DAILY 09/06/16 [History] Acetaminophen [Tylenol] 500 mg PO Q6HR PRN 09/14/16 [History] Aspirin 81 mg PO DAILY 09/14/16 [History] Albuterol Neb [Proventil Neb] 2.5 mg IH Q2H PRN #0 inhsol 09/21/16 [Rx] Docusate [Colace] 100 mg PO BID PRN #0 capsule 10/25/16 [Rx] Polyethylene Glycol 3350 [MiraLAX Powder Bulk 17.9 Oz] 1 scoop PO DAILY #510 gm 10/25/16 [Rx] GuaiFENesin ER [Mucinex] 600 mg PO BID PRN 12/18/16 [History] Levothyroxine [Synthroid] 125 mcg PO 0630 12/18/16 [History] Simvastatin [Zocor] 20 mg PO HS 12/18/16 [History] Nitrofurantoin (BID) [Macrobid] 100 mg PO BID #14 capsule 01/16/17 [Rx] Azelastine 0.1% Nasal [place] [Astelin] 1 spr IH BID PRN #0 02/22/17 [Rx] Bumetanide [Bumex] 0.5 mg PO DAILY #15 tablet 02/22/17 [Rx] Digoxin [Lanoxin] 0.125 mg PO QOD #15 tablet 02/22/17 [Rx] Isosorbide MONOnitrate (24 HR) [Imdur] 30 mg PO DAILY #30 02/22/17 [Rx] Lactobacillus [Culturelle] 1 each PO BID #6 cap.sprink 02/22/17 [Rx] Levofloxacin [Levaquin] 500 mg PO DAILY #3 tablet 02/22/17 [Rx] Loratadine [Allergy Relief] 10 mg PO DAILY PRN #0 02/22/17 [Rx] Pantoprazole Sodium [Protonix] 40 mg PO DAILY PRN #0 02/22/17 [Rx] Potassium Chloride 10 meq PO DAILY #30 tab.er.prt 02/22/17 [Rx] Simethicone [Gas-X] 80 mg PO TID PRN #90 tab.chew 02/22/17 [Rx] levoFLOXacin [Levaquin] 500 mg PO DAILY #3 tablet 02/22/17 [Rx] Allergies/Adverse Reactions: Allergies Penicillins Allergy (Mild, Verified 01/18/17 14:36) UNKNOWN cephalexin Allergy (Verified 01/18/17 14:36) Anaphylaxis Sulfa (Sulfonamide Antibiotics) Allergy (Verified 01/18/17 14:36) Hives Patients son stated-he is uncertain about the reaction but thinks it is hives. Date of admission: 02/20/17 15:25 Primary care physician: Urban Taylor MD Consults: 02/21/17 10:42 Consult to Occupational Therapy [CONS] Routine Comment: Evaluate, develop and implement POC Reason for Consult: weakness Consult to Physical Therapy [CONS] Routine Comment: Evaluate, develop and implement POC Reason for Consult: weakness - Patient Status Disposition: Home Health Service Condition: Good Functional capacity at discharge: uses cane/walker Overall status at discharge: patient is progressing back to baseline - Discharge Instructions Follow Up With: Urban Taylor MD [Primary Care Provider] - 1 week - Diet and Activity Activity: resume usual activities as tolerated Diet: advance to your usual diet Hospital course: Ms. Leigh is a 86 year old female who came to emergency room with complaints of increased dyspnea. She denied chest pain emergency room. She is evaluated and felt to have exacerbation of COPD. She was admitted to [facility] floor for ongoing care needs. Initial orders were written by the emergency room physician. I saw her on February 20 and performed the history and physical. She was started on IV Levaquin with lactobacillus for probable left lower lobe infiltrate. She had good clinical response with resolution of the left shift of WBC differential by the second hospital day. She will be discharged home with 3 additional days of antibiotic and probiotic. Lisinopril and Aldactone were discontinued. Her sodium and potassium normalized and creatinine decreased to 1.16 with estimated GFR rising to 44. She was started on isosorbide, low dose Bumex and Lanoxin. These will be continued at discharge. Her Bn peptide improved to 1437 by the day of discharge. Her dyspnea resolved and she wished to be discharged home on February 22. She declined an offer to stay an additional day and possibly go into swing bed. She will follow with her PCP Dr. Urban Taylor within one week. Room air oximetry will be checked prior to discharge. - Time Spent with Patient Total time spent providing and/or coordinating discharge services: - Constitutional Vitals: Temp Pulse Resp BP Pulse Ox 98.4 F 61 16 119/59 96 02/22/17 07:01 02/22/17 07:01 02/22/17 07:01 02/22/17 07:01 02/22/17 09:38
--- NOTE | 2017-02-22 10:31 | Physician Discharge Referral ---
Home Health/Hosp Referral Info Transfer to: Home Health Attending Provider: [place] Provider in Charge Post Discharge: PCP (Urban Taylor M.D.) - Diagnosis (1) Pneumonia Priority: Primary Status: Acute (2) Chronic systolic CHF (congestive heart failure) Priority: Secondary Status: Acute (3) Hypothyroidism Priority: Secondary Status: Chronic (4) CKD (chronic kidney disease) stage 3, GFR 30-59 ml/min Priority: Secondary Status: Chronic (5) Dementia Priority: Secondary Status: Chronic (6) Diabetes mellitus, type 2 Priority: Secondary Status: Chronic (7) Pancytopenia Priority: Secondary Status: Chronic - Respiratory Orders Smoking Cessation: Smoking cessation has been advised. For more information, call the [place] Tobacco Quit Line at 9-804-LSSB-NOW. - Diet/Nutrition Diet/Nutrition Orders: Regular - Activity Activity Orders: Walker - Services Needed Following services are medically necessary services: Nursing, Home Health Aide, Physical Therapy, Occupational Therapy - Transfer Medications Prescriptions: Bumetanide [Bumex] 0.5 mg PO DAILY #15 tablet Digoxin [Lanoxin] 0.125 mg PO QOD #15 tablet Isosorbide MONOnitrate (24 HR) [Imdur] 30 mg PO DAILY #30 Lactobacillus [Culturelle] 1 each PO BID #6 cap.sprink levoFLOXacin [Levaquin] 500 mg PO DAILY #3 tablet Levofloxacin [Levaquin] 500 mg PO DAILY #3 tablet Potassium Chloride 10 meq PO DAILY #30 tab.er.prt Home Medications: Carvedilol [Coreg] 3.125 mg PO BIDWM 04/13/15 [History] Multivitamin/Iron/Folic Acid [Centrum Complete Multivit Tab] 1 each PO DAILY [History] Tiotropium [Spiriva] 18 mcg IH DAILY 04/13/15 [History] Clopidogrel [Plavix] 75 mg PO DAILY 10/15/15 [History] Montelukast [Singulair] 10 mg PO QPM 10/15/15 [History] Budesonide/Formoterol 80/4.5 [Symbicort 80/4.5] 2 puff IH BID 02/12/16 [History ] Lactulose 10 gm PO TID udc 02/14/16 [Rx] Albuterol Sulfate [Ventolin Hfa] 2 puff IH Q4H PRN 08/27/16 [History] Mirtazapine [Remeron] 15 mg PO HS 08/27/16 [History] [place]-3/Dha/Epa/Fish Oil [Fish Oil 1,000 mg Softgel] 1 each PO DAILY 08/27/16 [ History] Biotin 1 mg PO DAILY 09/06/16 [History] Acetaminophen [Tylenol] 500 mg PO Q6HR PRN 09/14/16 [History] Aspirin 81 mg PO DAILY 09/14/16 [History] Albuterol Neb [Proventil Neb] 2.5 mg IH Q2H PRN #0 inhsol 09/21/16 [Rx] Docusate [Colace] 100 mg PO BID PRN #0 capsule 10/25/16 [Rx] Polyethylene Glycol 3350 [MiraLAX Powder Bulk 17.9 Oz] 1 scoop PO DAILY #510 gm 10/25/16 [Rx] GuaiFENesin ER [Mucinex] 600 mg PO BID PRN 12/18/16 [History] Levothyroxine [Synthroid] 125 mcg PO 0630 12/18/16 [History] Simvastatin [Zocor] 20 mg PO HS 12/18/16 [History] Nitrofurantoin (BID) [Macrobid] 100 mg PO BID #14 capsule 01/16/17 [Rx] Azelastine 0.1% Nasal [place] [Astelin] 1 spr IH BID PRN #0 02/22/17 [Rx] Bumetanide [Bumex] 0.5 mg PO DAILY #15 tablet 02/22/17 [Rx] Digoxin [Lanoxin] 0.125 mg PO QOD #15 tablet 02/22/17 [Rx] Isosorbide MONOnitrate (24 HR) [Imdur] 30 mg PO DAILY #30 02/22/17 [Rx] Lactobacillus [Culturelle] 1 each PO BID #6 cap.sprink 02/22/17 [Rx] Levofloxacin [Levaquin] 500 mg PO DAILY #3 tablet 02/22/17 [Rx] Loratadine [Allergy Relief] 10 mg PO DAILY PRN #0 02/22/17 [Rx] Pantoprazole Sodium [Protonix] 40 mg PO DAILY PRN #0 02/22/17 [Rx] Potassium Chloride 10 meq PO DAILY #30 tab.er.prt 02/22/17 [Rx] Simethicone [Gas-X] 80 mg PO TID PRN #90 tab.chew 02/22/17 [Rx] levoFLOXacin [Levaquin] 500 mg PO DAILY #3 tablet 02/22/17 [Rx] Allergies/Adverse Reactions: Allergies Penicillins Allergy (Mild, Verified 01/18/17 14:36) UNKNOWN cephalexin Allergy (Verified 01/18/17 14:36) Anaphylaxis Sulfa (Sulfonamide Antibiotics) Allergy (Verified 01/18/17 14:36) Hives Patients son stated-he is uncertain about the reaction but thinks it is hives. Certification: Further, I certify that my clinical findings support that this patient is homebound (i.e. absences from home require considerable and taxing effort and are for medical reasons or rastafarian services or infrequently or short duration when for other reasons) because: Homebound Reason: Leaving home requires considerable and taxing effort due to condition (Gen. debility with impaired ambulation ability) Attestation: My signature below is to certify that this patient is under my care and that I, or nurse practitioner, or a physician's yard assistant working with me, has a face-to -face encounter with this patient.
== END 2017-02-22 12:15 | disposition home health service (06) | DRG 190 ==
LOC: EMEROOPIK 21:59 → INPPIK 21:59
PROVIDERS: ADMIT Internal Medicine; ATTEND Internal Medicine